=== PATIENT | male | born 1985 | race Caucasian/White ===

== ENCOUNTER → 2018-06-27 17:34 | Outpatient (CLI) | payer OTHER, SELFPAY ==
--- NOTE | 2018-06-27 17:42 | DI.RAD.S_ITS ---
PROCEDURE: XR CHEST 2V INDICATIONS: Chest pain TECHNIQUE: 2 views of the chest were acquired. COMPARISON: None. FINDINGS: Surgical changes and devices: Surgical sutures in the right apex. Lungs and pleura: No pleural effusions or pneumothorax. Lungs are clear. Mediastinum: Mediastinal contours are normal. Heart size is normal. Bones and chest wall: No suspicious bony abnormalities. Soft tissues appear unremarkable. IMPRESSION: No acute cardiopulmonary disease. Dictated by: Chanda Pittman M.D. on 06/27/2018 at 18:25 Approved by: Chanda Pittman M.D. on 06/27/2018 at 18:26
[2018-06-27 19:33] LABS: Urine N gonorrhoeae NOT DETECTED
[2018-06-27 21:00] LABS: Urine Chlamydia NOT DETECTED
[2018-07-05 13:57] LABS: Rapid Plasma Reagin NON-REACTIVE
== END ==
PROVIDERS: Visit Provider Physician Assistant
DX: Z11.3 Encounter for screening for infections with a predominantly sexual mode of transmission (principal)
CPT/HCPCS: 36415; 71046; 86592; 87491; 87591

== ENCOUNTER → 2019-04-10 16:39 | Outpatient (CLI) | payer OTHER, SELFPAY ==
[2019-04-10 17:31] LABS: Add Manual Diff / Slide Review NO; Basophils Absolute Auto 0 /uL (0-100); Basophils Percent Auto 0.3 % (0-2); Eosinophils Absolute Auto 200 /uL (0-450); Hematocrit 45.6 % (41-53); Hemoglobin 15.7 g/dL (13.5-17.5); Lymphocytes Absolute Auto 1500 /uL (1100-4500); Mean Corpuscular HGB Conc 34.5 % (30-36); Mean Corpuscular Hemoglobin 33.2 PG (26-34); Mean Corpuscular Volume 96.2 fL (80-100); Monocytes Absolute Auto 800 /uL (0-900); Monocytes Percent Auto 9.2 % (3-14); Neutrophils Absolute Auto 6200 /uL (1500-7000); Neutrophils Percent Auto 71.5 % (50-75); Platelet Count 224 X10^3/uL (150-400); Red Blood Cell Count 4.75 X10^6/uL (4.5-5.9); Red Cell Distribution Width 12.9 % (11.6-14.8); White Blood Cell Count 8.7 X10^3/uL (4.5-11.0)
[2019-04-10 17:54] LABS: BUN Creatinine Ratio 12.9 (6-22); Blood Urea Nitrogen 9 mg/dL (9-20); Calcium 9.6 mg/dL (8.4-10.2); Carbon Dioxide 27 mmol/L (22-32); Chloride 104 mmol/L (98-107); Estimated Glomerular Filt Rate > 60.0 mL/min (>60); Glucose 87 mg/dL (70-100); HEMOLYSIS < 15 (0-50); Potassium 4.5 mmol/L (3.4-5.1); Sodium 140 mmol/L (137-145)
[2019-04-10 18:26] LABS: TSH w/ Reflex to FT4 1.62 uIU/mL (0.47-4.68)
[2019-04-10 19:37] LABS: Urine N gonorrhoeae NOT DETECTED
[2019-04-10 20:13] LABS: Urine Chlamydia DETECTED
== END ==
PROVIDERS: Visit Provider Physician Assistant
DX: R30.0 Dysuria (principal); R00.2 Palpitations
CPT/HCPCS: 36415; 80048; 84443; 85025; 87491; 87591

== ENCOUNTER → 2019-11-27 17:50 | Outpatient (ROUT) | payer OTHER, SELFPAY ==
[2019-11-27 19:24] LABS: Urine N gonorrhoeae NOT DETECTED
[2019-11-27 19:33] LABS: Urine Chlamydia NOT DETECTED
== END ==
PROVIDERS: Visit Provider Physician Assistant
DX: Z11.3 Encounter for screening for infections with a predominantly sexual mode of transmission (principal)
CPT/HCPCS: 87491; 87591

== ENCOUNTER → 2019-12-08 14:25 | Outpatient (CLI) | payer OTHER, SELFPAY ==
[2019-12-08 17:03] LABS: HIV 1 & 2 Ab/Ag 4th Gen Combo NEGATIVE (NEGATIVE)
[2019-12-10 12:51] LABS: HSV 1 IgM Screen Negative (Negative); HSV 2 IgM Screen Negative (Negative)
[2019-12-10 20:17] LABS: RPR Screen Nonreactive (Nonreactive)
[2019-12-12 09:13] LABS: Hepatitis A Antibody IgM NONREACTIVE; Hepatitis Acute Panel Interp 0.01; Hepatitis B Core Antibody IgM NONREACTIVE; Hepatitis B Surface Antigen NONREACTIVE; Hepatitis C Antibody NONREACTIVE
== END ==
PROVIDERS: Visit Provider Physician Assistant
DX: Z11.3 Encounter for screening for infections with a predominantly sexual mode of transmission (principal)
CPT/HCPCS: 36415; 80074; 86592; 86695; 86696; 87389

== ENCOUNTER 2019-12-30 13:40 | Emergency (ER) | payer OTHER, SELFPAY ==
[2019-12-30 13:43] VITALS: BP 148/86; PULSE 86; RESP 99; TEMP 36.6; O2SAT 100; BMI 25.7
--- NOTE | 2019-12-30 14:03 | DI.RAD.S_ITS ---
PROCEDURE: XR CHEST 2V INDICATIONS: chest pain hx collapsed lung TECHNIQUE: 2 views of the chest were acquired. COMPARISON: [facility], CR, XR CHEST 2V, 06/27/2018, 17:32. FINDINGS: Surgical changes and devices: There are surgical sutures within the right upper lung zone. Lungs and pleura: Right apical pleural thickening is redemonstrated consistent with scarring. No acute consolidation. No pleural effusions or pneumothorax. Mediastinum: Mediastinal contours are normal. Heart size is normal. Bones and chest wall: No suspicious bony abnormalities. Soft tissues appear unremarkable. IMPRESSION: 1. Postsurgical changes redemonstrated in the right apical region. No evidence of acute cardiopulmonary disease. Dictated by: Tad Carr M.D. on 12/30/2019 at 14:37 Approved by: Tad Carr M.D. on 12/30/2019 at 14:38
--- NOTE | 2019-12-30 14:25 | ED.CHESTPAIN ---
HPI - Chest Pain <RASHID Bartlett - Last Filed: 12/30/19 22:05> General Chief Complaint: Chest Pain Stated Complaint: sob, chest pain Time Seen by Provider: 12/30/19 14:02 Source: patient Mode of arrival: Ambulatory Limitations: no limitations History of Present Illness HPI narrative: This is a 34-year-old gentleman, nonsmoker, who presents to ED at least 6 month duration of intermittent mid chest discomfort and short of breath. Patient reports characteristic of discomfort is sharp and pressure-like and when he has this discomfort he has difficult time taking a deep breath. Patient had history of 4 collapsed lungs in the past and he had surgery in his right lung in 2007 to correct this. Initially, he states had a tension pneumothorax from a pneumonia in 2005. He reports discomfort usually lasts from 30 minutes to 1 hour. He felt worst last night but he did not have childcare so waited till today for an evaluations. He had taken 1 full dose of aspirin last night which helped him with discomfort. Patient denies nausea or vomiting. Patient reports pain decreases as time passes, unable to recall aggravating factors. Patient also reports he has a history of esophagitis and esphageal spasms which causes him to vomit until the spasms gets better. He reports this symptoms usually caused by eating foods that he is allergic to. Patient also has at times fast resting heart rate up to 120s which causing to have short of breath and dizziness. 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 Patient does admit that he has history of anxiety and used to take Xanax after he lost his older daughter a few years ago. He is not currently taking any medications for anxiety. He states since the custody [place] is over, he does not think he is anxious. He also states he has occasional blurred vision during this. Last eye exam was done about 10 years ago. Strong family history of stroke but no cardiac problems. Patient also reports 2 weeks ago he woke up with left arm swelling and numbness and he could not move his left arm for 20 minutes. After he shaked his L arm with other arm, he regained sensation and was able to move his left arm. Patient now has daily numbness to all 5 finger tips but denies weakness. Patient denies previous cervical spine injury or back pain. Related Data Home Medications Medication Instructions Recorded Confirmed multivitamin 1 tab PO DAILY 12/30/19 12/30/19 Previous Rx's Medication Instructions Recorded hydroxyzine HCl 25 mg PO BID PRN #10 tab 12/30/19 omeprazole 20 mg PO DAILY 14 Days #14 cap 12/30/19 Allergies Allergy/AdvReac Type Severity Reaction Status Date / Time No Known Drug Allergies Allergy Verified 12/30/19 13:47 Review of Systems <RASHID Bartlett - Last Filed: 12/30/19 22:05> Review of Systems Narrative: General: Denies fever, chills, (+) occasional fatigue, malaise, sweats. HEENT: Denies sinus pain, ear pain, sore throat, difficulty swallowing, dizziness. Respiratory: Denies dyspnea, cough, wheezing, hemoptysis, sputum. Occasional SOB with chest tightness and pressure. Cardiovascular: He HPI Gastrointestinal: Denies nausea, vomiting, abdominal pain, diarrhea, constipation, melena. : Denies dysuria, frequency, incontinence, hematuria, urinary retention. Musculoskeletal: Denies weakness, joint pain or bony pain. Skin: Denies rash, skin lesions, or other. Neurologic: Denies weakness, headache, (+) numbness to left finger tips, change in speech, confusion, seizures, incoordination, (+) occasional blurred vision. Psychiatric: No concerning psychosocial issues. 12-point review of systems is negative except for those stated above. Patient History <RASHID Bartlett - Last Filed: 12/30/19 22:05> Medical History Anxiety (Acute) Esophagitis (Acute) Pneumonia (Acute) Pneumothorax (Acute) Social History Smoking Status: Never smoker Smoking Status: Never smoker Substance Use Type: does not use Exam <RASHID Bartlett - Last Filed: 12/30/19 22:05> Narrative Exam Narrative: GEN: Alert, oriented x 3, well appearing and nourished, and in no acute distress. Head: Normal cephalic, atraumatic. No scalp or temporal tenderness, palpable mass or rash. EYES: Pupils are equal, round, and reactive to light and accommodation. Extraocular muscles are intact bilaterally. There is no subconjunctival hemorrhage, exudate and sclera non-icteric. ENT: Bilateral auditory canals and tympanic membranes clear. Hearing grossly intact. Nose without bleeding, purulent discharge or deviation. Facial sinuses nontender to palpate. Mucous membrane moist, no mucosal lesion. Throat without erythema, tonsillar hypertrophy or exudate. Uvula in midline, airway patent. Neck: Trachea in midline. No JVD, non-tender without lymphadenopathy. No masses or thyroid megaly. Supple, non-tender and no meningeal signs. CARDIAC: Normal regular rate and rhythm without murmurs, gallops, or rubs. No chest wall tenderness. No peripheral edema, cyanosis or pallor. Capillary refill is less than 2 seconds. RESPIRATORY: Lungs are clear to auscultate bilaterally. No cough, wheezes, rales, or rhonchi. No stridor, respiratory distress, increase work of breathing, or accessary muscle used. ABD: Abdomen soft, nontender and non-distended. No guarding or rebound tenderness to palpate. Bowel sounds are normal in all 4 quadrants. There is no palpable masses or organomegaly. EXT: Full painless ROM of all extremities with no loss of sensation, strength, effusion or edema. SKIN: Warm, dry, normal color for patient. No erythema, lesions or rash over visible areas. BACK: Nontender without deformity or crepitance. No flank tenderness. NEUROLOGICAL: Alert and oriented to place, time and person. Sensation and motor function intact bilaterally. No facial droops, dysphasia. PSYCHIATRIC: Good judgement and reason, without hallucinations, abnormal affect or abnormal behaviors during the examination. Patient is not suicidal. Initial Vital Signs Initial Vital Signs: Vital Signs Temperature 97.8 F 12/30/19 13:43 Pulse Rate 86 12/30/19 13:43 Respiratory Rate 99 H 12/30/19 13:43 Blood Pressure 148/86 H 12/30/19 13:43 Pulse Oximetry 100 12/30/19 13:43 Extrem Right upper extremity: normal to inspection, full ROM, normal capillary refill, no joint enlargement and hand Details: normal to inspection, normal capillary refill, neuromotor exam normal, neurosensory exam normal, normal ROM of fingers, swelling and no swelling; no edema Left upper extremity: normal to inspection, full ROM, normal capillary refill, no joint enlargement and hand Details: normal to inspection, normal capillary refill, neuromotor exam normal, neurosensory exam normal, tendon exam normal, vascular exam Details: radial pulse present, normal ROM of fingers and no swelling; no edema <Shamar Dhaliwal DO - Last Filed: 12/31/19 18:26> Initial Vital Signs Initial Vital Signs: Vital Signs Temperature 97.8 F 12/30/19 13:43 Pulse Rate 86 12/30/19 13:43 Respiratory Rate 99 H 12/30/19 13:43 Blood Pressure 148/86 H 12/30/19 13:43 Pulse Oximetry 100 12/30/19 13:43 Scores <[facility] - Last Filed: 12/30/19 22:05> GCS [place] coma scale eye opening: Spontaneous [place] coma scale verbal response: Orientated [place] coma scale motor response: Obey commands [place] coma scale total score: 15 Course <[facility] - Last Filed: 12/30/19 22:05> Orders Ordered: Discontinued Medications Al Hydrox/Mg Hydrox/Simethicone 20 ml/ Lidocaine HCl 10 ml 0 ml PO NOW ONE Stop: 12/30/19 14:25 Last Admin: 12/30/19 16:17 Dose: 30 ml Documented by: BTONER Vital Signs Vital signs: Vital Signs - 8 hr 12/30/19 14:45 12/30/19 15:43 Pulse Rate 89 Respiratory Rate 12 Blood Pressure [Left Arm] 136/85 Pulse Oximetry 98 <Shamar Dhaliwal DO - Last Filed: 12/31/19 18:26> Orders Ordered: Discontinued Medications Al Hydrox/Mg Hydrox/Simethicone 20 ml/ Lidocaine HCl 10 ml 0 ml PO NOW ONE Stop: 12/30/19 14:25 Last Admin: 12/30/19 16:17 Dose: 30 ml Documented by: BTONER Vital Signs Vital signs: Vital Signs - 8 hr 12/30/19 14:45 12/30/19 15:43 Pulse Rate 89 Respiratory Rate 12 Blood Pressure [Left Arm] 136/85 Pulse Oximetry 98 MDM - Chest Pain <[facility] - Last Filed: 12/30/19 22:05> Differential Diagnosis Differential diagnosis: Likely pneumothorax, atypical chest pain and other (Esophageal spasm, Anxiety) Medical Records Data Attestation: I reviewed the patient's medical records. Lab Data Attestation: I reviewed the patient's lab results. Result diagrams: 12/30/19 14:54 12/30/19 14:54 Labs: Lab Results 12/30/19 12/30/19 Range/Units 14:54 14:54 WBC 6.3 (4.5-11.0) X10^3/uL RBC 4.74 (4.5-5.9) X10^6/uL Hgb 15.9 (13.5-17.5) g/dL Hct 45.2 (41-53) % MCV 95.3 (80-100) fL MCH 33.5 (26-34) PG MCHC 35.2 (30-36) % RDW 12.8 (11.6-14.8) % Plt Count 211 (150-400) X10^3/uL Neut % (Auto) 54.3 (50-75) % Lymph % (Auto) 26.2 (25-40) % [place] % (Auto) 10.1 (3-14) % Eos % (Auto) 8.9 H (2-4) % Baso % (Auto) 0.5 (0-2) % Neut # (Auto) 3400 (8330-1695) /uL Lymph # (Auto) 1700 (1585-1614) /uL [place] # (Auto) 600 (0-900) /uL Eos # (Auto) 600 H (0-450) /uL Baso # (Auto) 0 (0-100) /uL Sodium 139 (137-145) mmol/L Potassium 4.3 (3.4-5.1) mmol/L Chloride 105 (98-107) mmol/L Carbon Dioxide 25 (22-32) mmol/L BUN 12 (9-20) mg/dL Creatinine 0.70 (0.66-1.25) mg/dL Estimated GFR > 60.0 (>60) mL/min BUN/Creatinine Ratio 17.1 (6-22) Glucose 81 (70-100) mg/dL Calcium 9.2 (8.4-10.2) mg/dL Total Bilirubin 0.5 (0.2-1.3) mg/dL AST 34 (17-59) IU/L ALT 42 (<50) IU/L Alkaline Phosphatase 78 (38-126) U/L Total Creatine Kinase 56 (55-170) U/L CK-MB (CK-2) TNP CK-MB (CK-2) Rel Index TNP Troponin I < 0.012 (0.01-0.034) ng/mL Total Protein 7.8 (6.3-8.2) g/dL Albumin 4.6 (3.5-5.0) g/dL Globulin 3.2 (1.7-4.1) g/dL Albumin/Globulin Ratio 1.4 (1.0-2.8) Lipase 48 (23-300) U/L Imaging Data Chest x-ray: Radiologist's Impression: [address] [address] XRay Report Signed Patient: Noam Akins [facility]#: [id number] : 1985Acct:[id number] Age/Sex: 34 / MDate of Service: 12/30/19 Loc: ED Accession Number: [id number] Procedure: XR chest 2V Ordering Provider: Kuldip Alvarado PROCEDURE: XR CHEST 2V INDICATIONS: chest pain hx collapsed lung TECHNIQUE: 2 views of the chest were acquired. [facility] 17[facility]. FINDINGS: Surgical changes and devices: There are surgical sutures within the right upper lung zone. Lungs and pleura: Right apical pleural thickening is redemonstrated consistent with scarring. No acute consolidation. No pleural effusions or pneumothorax. Mediastinum: Mediastinal contours are normal. Heart size is normal. Bones and chest wall: No suspicious bony abnormalities. Soft tissues appear unremarkable. IMPRESSION: 1. Postsurgical changes redemonstrated in the right apical region. No evidence of acute cardiopulmonary disease. Dictated by: Tad Carr M.D. on 12/30/2019 at 14:37 Approved by: Tad Carr M.D. on 12/30/2019 at 14:38 ECG Data Attestation: I personally reviewed and interpreted this ECG as follows: Prior ECG tracings: not available for review Interpretation: SR rate at 89. Pr int 158, normal QRS, QT/QTc 363/[address] elevation/depression MDM Narrative Medical decision making narrative: This is a 34-year-old male who presents to ED with about 6 months duration of intermittent mid chest discomfort describing as sharp, burning and pressure, fast resting heart rate, with occasional short of breath who has a history of esophagitis, pneumothorax, anxiety. Chest x-ray today was not appreciate infection or pneumothorax. No increase in WBC but elevated eosinophil of 8.9. Chemistries were unremarkable including cardiac enzymes. Given his symptoms lasted last 6 months intermittently, just one cardiac enzymes were drawn. EKG was normal sinus rhythm. Patient was medicated with GI cocktail with improved discomfort from 06/04 to 01/05. Patient's chest burning and sharp discomfort may likely due to esophagitis and/or anxiety component. Patient was advised to follow up with PCP who he recently signed up for and discuss his symptoms and follow-up with Holter monitor/event monitor possibly for the resting tachycardia and to follow up with anxiety, possible eosinophilic esophagitis. Patient discharged to home with omeprazole for daily use and small dose of hydroxyzine for his anxiety. Patient verbalized understanding and agrees with the treatment plan. <Shamar Dhaliwal, DO - Last Filed: 12/31/19 18:26> Lab Data Labs: Lab Results 12/30/19 12/30/19 Range/Units 14:54 14:54 WBC 6.3 (4.5-11.0) X10^3/uL RBC 4.74 (4.5-5.9) X10^6/uL Hgb 15.9 (13.5-17.5) g/dL Hct 45.2 (41-53) % MCV 95.3 (80-100) fL MCH 33.5 (26-34) PG MCHC 35.2 (30-36) % RDW 12.8 (11.6-14.8) % Plt Count 211 (150-400) X10^3/uL Neut % (Auto) 54.3 (50-75) % Lymph % (Auto) 26.2 (25-40) % [place] % (Auto) 10.1 (3-14) % Eos % (Auto) 8.9 H (2-4) % Baso % (Auto) 0.5 (0-2) % Neut # (Auto) 3400 (9371-8151) /uL Lymph # (Auto) 1700 (8214-2685) /uL [place] # (Auto) 600 (0-900) /uL Eos # (Auto) 600 H (0-450) /uL Baso # (Auto) 0 (0-100) /uL Sodium 139 (137-145) mmol/L Potassium 4.3 (3.4-5.1) mmol/L Chloride 105 (98-107) mmol/L Carbon Dioxide 25 (22-32) mmol/L BUN 12 (9-20) mg/dL Creatinine 0.70 (0.66-1.25) mg/dL Estimated GFR > 60.0 (>60) mL/min BUN/Creatinine Ratio 17.1 (6-22) Glucose 81 (70-100) mg/dL Calcium 9.2 (8.4-10.2) mg/dL Total Bilirubin 0.5 (0.2-1.3) mg/dL AST 34 (17-59) IU/L ALT 42 (<50) IU/L Alkaline Phosphatase 78 (38-126) U/L Total Creatine Kinase 56 (55-170) U/L CK-MB (CK-2) TNP CK-MB (CK-2) Rel Index TNP Troponin I < 0.012 (0.01-0.034) ng/mL Total Protein 7.8 (6.3-8.2) g/dL Albumin 4.6 (3.5-5.0) g/dL Globulin 3.2 (1.7-4.1) g/dL Albumin/Globulin Ratio 1.4 (1.0-2.8) Lipase 48 (23-300) U/L Discharge Plan Departure Patient Disposition: Home Clinical Impression: Esophagitis, Atypical chest pain, Anxiety Discharge Date/Time: 12/30/19 16:45 Instructions: DI for Atypical Chest Pain, DI for Anxiety -- Adult, DI for Esophagitis Activity Restrictions/Additional Instructions: You have been diagnosed with [atypical chest pain, possible eosinophilic esophagitis, anxiety. Your EKG, blood tests were unremarkable excep elevated eosinophil. Your cardiac enzymes were negative. No acute findings per chest x-ray.]. What to do: *Take your medications as directed. Please start taking omeprazole daily for your symptoms and as needed hydroxyzine when you have anxiety symptoms. This medication may cause drowsiness so please take precautions. You may need Holter monitor/incident monitor for palpitation you have been feeling and a referral to solar thermal technician and a referral to GI speciality or esophagitis. *Follow up with your primary care provider in 2-3 days, call for an appointment. Let them know you were seen in the ED and that we asked you to be seen in follow up. *Return to ED if you have any new, worsening, or concerning symptoms, such as [different chest pain, breathing difficulty, unable to tolerate fluids, fever, or any acute concerns]. Prescriptions: New omeprazole 20 mg capsule,delayed release(DR/EC) 20 mg PO DAILY 14 Days Qty: 14 RF: 0 hydroxyzine HCl 25 mg tablet 25 mg PO BID PRN (Reason: anxiety) Qty: 10 RF: 0 No Action multivitamin Tablet 1 tab PO DAILY RF: 0 Referrals: Luis Antonio Blair DO [Physician] - <Shamar Dhaliwal DO - Last Filed: 12/31/19 18:26> Sign Out Provider Sign Out Attestation: Dr Dhaliwal Co-Sign Statement: I was available for consultation during this patient's emergency department visit. This chart is signed by myself for administrative purposes only. I did not have direct contact with this patient during this visit. They were seen independently by the APC.
[2019-12-30 14:45] VITALS: BP 136/85
[2019-12-30 15:01] LABS: Add Manual Diff / Slide Review NO; Basophils Absolute Auto 0 /uL (0-100); Basophils Percent Auto 0.5 % (0-2); Eosinophils Absolute Auto 600 /uL (0-450); Eosinophils Percent Auto 8.9 % (2-4); Hematocrit 45.2 % (41-53); Hemoglobin 15.9 g/dL (13.5-17.5); Lymphocytes Absolute Auto 1700 /uL (1100-4500); Lymphocytes Percent Auto 26.2 % (25-40); Mean Corpuscular HGB Conc 35.2 % (30-36); Mean Corpuscular Hemoglobin 33.5 PG (26-34); Mean Corpuscular Volume 95.3 fL (80-100); Monocytes Absolute Auto 600 /uL (0-900); Monocytes Percent Auto 10.1 % (3-14); Neutrophils Absolute Auto 3400 /uL (1500-7000); Neutrophils Percent Auto 54.3 % (50-75); Platelet Count 211 X10^3/uL (150-400); Red Blood Cell Count 4.74 X10^6/uL (4.5-5.9); Red Cell Distribution Width 12.8 % (11.6-14.8); White Blood Cell Count 6.3 X10^3/uL (4.5-11.0)
[2019-12-30 15:14] LABS: Alanine Aminotransferase 42 IU/L (<50); Albumin 4.6 g/dL (3.5-5.0); Albumin Globulin Ratio 1.4 (1.0-2.8); Alkaline Phosphatase 78 U/L (38-126); Aspartate Aminotransferase 34 IU/L (17-59); BUN Creatinine Ratio 17.1 (6-22); Bilirubin Total 0.5 mg/dL (0.2-1.3); Blood Urea Nitrogen 12 mg/dL (9-20); Calcium 9.2 mg/dL (8.4-10.2); Carbon Dioxide 25 mmol/L (22-32); Chloride 105 mmol/L (98-107); Creatine Kinase 56 U/L (55-170); Estimated Glomerular Filt Rate > 60.0 mL/min (>60); Globulin 3.2 g/dL (1.7-4.1); Glucose 81 mg/dL (70-100); HEMOLYSIS < 15 (0-50); Lipase 48 U/L (23-300); Potassium 4.3 mmol/L (3.4-5.1); Sodium 139 mmol/L (137-145); Total Protein 7.8 g/dL (6.3-8.2)
[2019-12-30 15:26] LABS: Troponin I < 0.012 ng/mL (0.01-0.034)
[2019-12-30 15:43] VITALS: PULSE 89; RESP 12; O2SAT 98
[2019-12-30] MEDS: [UNRECOGNIZED DRUG - OTHER] PO (16:17)
[2019-12-30] MEDS: ALUMINUM PO (16:17)
[2019-12-30] MEDS: MAG HYDROX PO (16:17)
== END 2019-12-30 16:45 | disposition home or self-care (01) ==
PROVIDERS: Emergency Provider Nurse Practitioner Family
DX: K20.9 Esophagitis, unspecified (principal); R07.89 Other chest pain; F41.9 Anxiety disorder, unspecified
CPT/HCPCS: 36415; 71046; 80053; 82550; 83690; 84484; 85025; 93005; 99284; 99285

== ENCOUNTER → 2020-03-01 15:56 | Outpatient (CLI) | payer OTHER, SELFPAY ==
--- NOTE | 2020-03-01 | DI.ECHO.S_ITS ---
[facility]---------+ [facility] +---------+ : : [address] : : : : [id number] : : : : Phone: [phone] Echocardiogram Report + + :Name: ANJALI FERRARO Study Date: 03/01/2020 Height: 73 in : :[facility] Weight: 207 lb : : Gender: Male BSA: 2.2 m2 : :: 1985 Age: 35 yrs BP: 142/80 mmHg: :Reason For Study: History of Pneumothorax : : Performed By: Rufina Bay : :Referring: LEONARDO CONTRERAS : + + Interpretation Summary Normal echo study. Procedure: A two-dimensional transthoracic echocardiogram with color flow and Doppler was performed. The study quality was technically adequate. There is no prior echocardiogram noted for this patient. The patient was in sinus tachycardia with heart rates between 94-112 bpm during the exam. Left Ventricle: The left ventricle is normal in size and wall thickness. The ejection fraction is estimated to be 60-65%. Left ventricular wall motion is normal. Right Ventricle: The right ventricle is normal in size and function. Atria: Both atria are normal in size. There is no Doppler evidence for an interatrial shunt. Mitral Valve: The mitral valve is normal in structure and function. There is no mitral regurgitation noted. Aortic Valve: The aortic valve is trileaflet. There is no aortic valve stenosis. No aortic regurgitation is present. Tricuspid Valve: The tricuspid valve is normal in structure and function. There is a trace or physiologic amount of tricuspid regurgitation. Pulmonary artery pressures cannot be estimated because of the lack of a measurable TR jet velocity but the IVC suggests a CVP of around 3 mmHg. Pulmonic Valve: The pulmonic valve is normal in structure and function. There is no pulmonic valvular regurgitation. Great Vessels: The aortic root is normal size. The ascending aorta is normal in size. The IVC is of normal diameter and collapses greater than 50% with a sniff. This suggests a low right atrial pressure of 3 mm Hg. Pericardium/ Pleura There is no pericardial effusion. There is no pleural effusion. MMode/2D Measurements & Calculations LVIDd: 4.7 cm LVOT diam: 2.4 cm LVIDs: 3.2 cm Ao root diam: 3.4 cm FS: 31.4 % asc Aorta Diam: 3.0 cm EPSS: 0.41 cm Ao Arch Diam (Prox Trans): 2.3 cm IVSd: 0.80 cm LVPWd: 1.00 cm LV ye. diameter/BSA (cm/m^2): 2.2 LV sys. diameter/BSA (cm/m^2): 1.5 LA A2 area: 15.0 cm2 RA long axis: 5.2 cm LA A4 area: 12.9 cm2 RA area: 16.0 cm2 LA length (vol): 4.9 cm RA vol: 41.9 ml LA vol: 33.5 ml RA : 19.2 ml/m2 LA vol index: 15.3 ml/m2 IVC diam: 1.2 cm RVD1 (basal): 3.7 cm TAPSE: 2.7 cm Doppler Measurements & Calculations Ao V2 max: 143.1 cm/sec LVOT Max Adolfo: 121.6 cm/sec Ao V2 mean: 96.6 cm/sec LV V1 max P.9 mmHg Ao max P.2 mmHg LV V1 VTI: 22.4 cm Ao mean P.3 mmHg JOVANA(I,D): 3.9 cm2 Ao V2 VTI: 26.7 cm JOVANA(V,D): 4.0 cm2 sev ratio: 0.84 JOVANA indexed to BSA (cm^2/m^2): 1.8 MV E max adolfo: 87.2 cm/sec PA V2 max: 92.0 cm/sec MV A max adolfo: 82.8 cm/sec PA V2 mean: 64.3 cm/sec MV E/A: 1.1 PA mean P.8 mmHg Med Peak E' Adolfo: 14.6 cm/sec PA pr(Accel): 35.6 mmHg E/E' med: 6.0 Lat Peak E' Adolfo: 15.6 cm/sec E/E' lat: 5.6 E/e' average: 5.8 MV dec time: 0.22 sec SV(LVOT): 105.2 ml Electronically signed by: Mani Lan on Reading Physician:03/01/2020 05:41 PM
== END ==
PROVIDERS: PCP Family Medicine; Referring Provider Family Medicine; Visit Provider Family Medicine
DX: R53.83 Other fatigue (principal); Z87.09 Personal history of other diseases of the respiratory system
CPT/HCPCS: 93306